=== PATIENT | male | born 1950 | race Caucasian/White ===

== ENCOUNTER → 2019-07-08 | Outpatient (CLI) | payer OTHER ==
[~2019-07-08] MED LIST: CRESTOR10 MG PO; CRUTCH1 EACH MC; CYMBALTA60 MG PO; IBUPROFEN 600600 M1 PO; NIACIN 100MG T100 M1 PO; NORCO 5-325 TA1 EACH PO; TENORMIN25 MG PO; VITAMIN D1000 UNI1 PO; ZETIA10 MG PO
== END ==
LOC: SJCVCIMAG 09:12
DX: I71.4 Abdominal aortic aneurysm, without rupture (principal); I73.9 Peripheral vascular disease, unspecified; I25.10 Atherosclerotic heart disease of native coronary artery without angina pectoris; E78.00 Pure hypercholesterolemia, unspecified; I10 Essential (primary) hypertension; Z79.82 Long term (current) use of aspirin; Z79.899 Other long term (current) drug therapy

== ENCOUNTER → 2020-03-15 | Outpatient (CLI) | payer OTHER | LOC: SJCVCIMAG 11:01 | PROVIDERS: ATTEND Internal Medicine Cardiovascular Disease | DX: I49.3 Ventricular premature depolarization (principal); I25.10 Atherosclerotic heart disease of native coronary artery without angina pectoris; I10 Essential (primary) hypertension ==

== ENCOUNTER → 2021-03-15 | Outpatient (CLI) | payer MEDICARE | LOC: SJCVC 10:46 | PROVIDERS: ATTEND Internal Medicine Cardiovascular Disease | DX: R94.31 Abnormal electrocardiogram [ECG] [EKG] (principal); R00.1 Bradycardia, unspecified; I25.10 Atherosclerotic heart disease of native coronary artery without angina pectoris; I10 Essential (primary) hypertension; E78.00 Pure hypercholesterolemia, unspecified; I65.23 Occlusion and stenosis of bilateral carotid arteries; I71.4 Abdominal aortic aneurysm, without rupture; I72.3 Aneurysm of iliac artery; F19.90 Other psychoactive substance use, unspecified, uncomplicated; Z72.89 Other problems related to lifestyle; Z79.82 Long term (current) use of aspirin; Z79.899 Other long term (current) drug therapy; Z82.49 Family history of ischemic heart disease and other diseases of the circulatory system ==

== ENCOUNTER 2021-03-19 15:38 | Emergency (ER) | payer MEDICARE ==
[~2021-03-19] VITALS: Ht 185.4 cm; Wt 91.6 kg
[2021-03-19 17:34] LABS: ABSOLUTE NEUTROPHILS 2.2 thou/uL (1.4-8.2); BASOPHILS 0.9 % (0.0-2.0); EOSINOPHILS 1.6 % (0.0-3.0); HEMATOCRIT 44.5 % (42.0-52.0); HEMOGLOBIN 15.2 gm/dL (14.0-18.0); LYMPHOCYTES 32.4 % (24.0-44.0); MCH 35.3 pg (26.0-34.0); MCHC 34.2 g/dL (28.0-37.0); MCV 103.4 fL (80.0-100.0); PLATELET COUNT 167 thou/uL (150-400); POLYS 50.1 % (36.0-66.0); RBC 4.31 mil/uL (4.50-6.00); RDW 13.9 % (10.5-14.5); WBC 4.4 thou/uL (4.0-11.0)
[2021-03-19 18:26] LABS: CALCIUM 9.4 mg/dL (8.5-10.1); POTASSIUM 3.7 mmol/L (3.5-5.1)
[2021-03-19 18:36] LABS: ALBUMIN 3.1 g/dL (3.4-5.0); TOTAL BILIRUBIN 0.4 mg/dL (0.2-1.0); TOTAL PROTEIN 6.5 g/dL (6.4-8.2)
[2021-03-19 18:57] VITALS: BP 143/79
--- NOTE | 2021-03-21 07:36 | EKG ---
[place] [address] [facility] [address] [place] [place] [address] ELECTROCARDIOGRAM REPORT Name: NATAMAYLIN Room #: [facility]#: [id number] Admission: 03/19/21 Attend Phys: Discharge: 03/19/21 Date of : 48 Report #: [id number] 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 : 1950 Requested By: Etienne Posada Order Number: [id number] MD: Eagle Roman Measurements Intervals [place] Rate: 75 P: 24 AK: 182 QRS: 3 QRSD: 97 T: 5 QT: 445 QTc: 498 Interpretive Statements Sinus rhythm Minimal ST depression, inferior leads Borderline prolonged QT interval Compared to ECG 03/22/1995 07:52:00 Sinus bradycardia no longer present Possible ischemia no longer present ST (T wave) deviation still present Electronically Signed On 03-21-2021 7:36:21 [employer]FIN[employer] by Eagle Roman [email or web address] <ELECTRONICALLY SIGNED> By: Eagle Roman MD, [facility] 03/21/21 0736 1543 1543 Eagle Roman MD, [facility] /EPI
== END 2021-03-19 18:58 | disposition left against medical advice (07) ==
LOC: ER 15:38
PROVIDERS: Emergency Medicine
DX: R07.89 Other chest pain (principal); E78.00 Pure hypercholesterolemia, unspecified; F17.210 Nicotine dependence, cigarettes, uncomplicated; Z79.899 Other long term (current) drug therapy